=== PATIENT | female | born 2000 | race Caucasian/White ===

== ENCOUNTER 2022-10-12 07:49 | Outpatient (CLI) | payer BC, SELFPAY ==
--- NOTE | 2022-11-01 01:36 | WPDHOMESLEEP ---
Sleep Study - Home Unattended Date of Study: 10/12/22 Ordering Provider: Jason David MD Interpreting Provider: Sera Estevez, DO Home Sleep Study Type: Watch PAT Height: 1.63 m Weight: 97.069 kg Body Mass Index: 36.7 Neck Circumference (inches): 14 [place]: 7 Reason for Sleep Study Daytime hypersomnia Sleep History The patient is a 22-year-old female with daytime hypersomnia that had a sleep study ordered by her primary care for evaluation of sleep apnea. The patient denies awakening from sleep short of breath. She denies awakening at night with heartburn, belching or cough. She denies snoring. She occasionally has trouble sleeping when she has a cold. She denies waking up gasping for air throughout the night. She denies having breathing problems at night observed by herself or others. She occasionally sweats excessively at night. She denies having heart palpitations or irregular heartbeats during the night. She frequently falls asleep during the day but never while driving. She denies sleep paralysis and cataplexy. She frequently has trouble at school or work due to sleepiness. She rarely experiences vivid dreamlike scenes upon awakening or falling asleep. He rarely feels afraid of going to sleep. She denies having nightmares. She occasionally remembers her dreams. She frequently has thoughts racing through her mind. She occasionally feels sad, depressed and anxious. She denies having muscular tension. She denies noticing parts of her body jerk. She denies kicking during the night. She occasionally has crawling and aching feelings in her legs but rarely has leg pain during the night. She denies grinding her teeth during sleep but rarely awakens with morning jaw pain. She is rarely bothered by pain during the day and never awakened by pain during the night. She rarely wakes up feeling stiff in the morning. She rarely wakes up with sore achy muscles. She rarely wakes up with pain in the neck, spine or other joints. The patient goes to bed between midnight to 1:00 a.m. on both weekdays and weekends. It takes her 30 minutes to an hour to fall asleep. She wakes up twice throughout the night to use the restroom. She is able to fall back asleep within 10 minutes. She wakes up between 8:29 a.m. on weekdays and between 6-9 a.m. on the weekends. She typically gets 6 hours of sleep per night. She will stay in bed for 30 minutes to an hour after waking up in the morning. She currently lives with 2 friends. She does not consume any caffeinated beverages within 2 hours of bedtime. She does not engage in physical exercise before bedtime. She will read and watch television before falling asleep. She denies taking naps in the afternoon or the evening. She drinks 4-5 caffeinated beverages per day. She denies tobacco, alcohol and recreational drug use. [facility] Past Medical History Medical History ADHD (attention deficit hyperactivity disorder), inattentive type (~2017) diagnosed 09/06/2022 Anxiety BMI 36.0-36.9,adult BMI 37.0-37.9, adult Eczema upper extremities Elevated testosterone level in female (08/05/21) testosterone slightly elevated at 50 on 08/05/2021 Encounter for wellness examination in adult Folic acid deficiency (09/23/22) folic acid slightly low at 5.2 on 09/23/2022 with hemoglobin 13.3. Iron 45 with 15% saturation and ferritin 50. Hypersomnia (~2021) Irregular menses estrogen slightly low at 36 with testosterone elevated at 50 with FSH 5.9 and LH 7.4 on 08/05/2021 Left anterior shoulder pain (~02/2022) Obesity (BMI 30-39.9) Thrombocytosis (08/05/21) platelets slightly elevated at 432 on 08/05/2021. platelets 399 on 09/23/2022. Surgical History Surgical History H/O wisdom tooth extraction Family History Family History
[2022-11-01 01:49] VITALS: BMI 36.7
--- NOTE | 2023-01-04 13:42 | SLEEP ---
pt has sched appoint
== END 2022-10-13 10:48 | disposition home or self-care (01) ==
LOC: ANHCSM 07:50
PROVIDERS: PCP Family Medicine; Visit Provider Family Medicine
DX: G47.10 Hypersomnia, unspecified (principal)
CPT/HCPCS: 95800

== ENCOUNTER 2023-05-10 08:29 | Outpatient (CLI) | payer BC, SELFPAY ==
--- NOTE | 2023-05-31 17:42 | WPDSLEEPSTUD ---
Sleep Study Date of Study: 05/10/23 Ordering Provider: Jane Rojas MD Interpreting Physician: Sera Estevez DO Sleep Study Type: Polysomnogram Height: 1.63 m Weight: 90.718 kg Body Mass Index: 34.3 Neck Circumference (inches): 14 [place]: 7 Reason for Sleep Study Hypersomnia. She had a WatchPAT home study on 10/12/2022 that showed an overall AHI of 1.2 with desaturation down to 89%. Sleep History The patient is a 22-year-old female with ADHD, irregular menses and obesity that had a PSG and MSLT ordered by her block making machine operator for evaluation of hypersomnia. The patient denies awakening from sleep short of breath.? She denies awakening at night with heartburn, belching or cough.? She denies snoring.? She occasionally has trouble sleeping when she has a cold.? She denies waking up gasping for air throughout the night.? She denies having breathing problems at night observed by herself or others.? She occasionally sweats excessively at night.? She denies having heart palpitations or irregular heartbeats during the night.? She frequently falls asleep during the day but never while driving.? She denies sleep paralysis and cataplexy.? She frequently has trouble at school or work due to sleepiness.? She rarely experiences vivid dreamlike scenes upon awakening or falling asleep.? He rarely feels afraid of going to sleep.? She denies having nightmares.? She occasionally remembers her dreams.? She frequently has thoughts racing through her mind.? She occasionally feels sad, depressed and anxious.? She denies having muscular tension.? She denies noticing parts of her body jerk.? She denies kicking during the night.? She occasionally has crawling and aching feelings in her legs but rarely has leg pain during the night.? She denies grinding her teeth during sleep but rarely awakens with morning jaw pain.? She is rarely bothered by pain during the day and never awakened by pain during the night.? She rarely wakes up feeling stiff in the morning.? She rarely wakes up with sore achy muscles.? She rarely wakes up with pain in the neck, spine or other joints.? The patient goes to bed between midnight to 1:00 a.m. on both weekdays and weekends.? It takes her 30 minutes to an hour to fall asleep.? She wakes up twice throughout the night to use the restroom.? She is able to fall back asleep within 10 minutes.? She wakes up between 8:29 a.m. on weekdays and between 6-9 a.m. on the weekends.? She typically gets 6 hours of sleep per night.? She will stay in bed for 30 minutes to an hour after waking up in the morning.? She currently lives with 2 friends.? She does not consume any caffeinated beverages within 2 hours of bedtime.? She does not engage in physical exercise before bedtime.? She will read and watch television before falling asleep.? She denies taking naps in the afternoon or the evening.? She drinks 4-5 caffeinated beverages per day.? She denies tobacco, alcohol and recreational drug use. [facility] Past Medical History Medical History ADHD (attention deficit hyperactivity disorder), inattentive type (~2017) diagnosed 09/06/2022 Anxiety BMI 34.0-34.9,adult BMI 36.0-36.9,adult BMI 37.0-37.9, adult Eczema upper extremities Elevated testosterone level in female (08/05/21) testosterone slightly elevated at 50 on 08/05/2021 Encounter for wellness examination in adult Folic acid deficiency (09/23/22) folic acid slightly low at 5.2 on 09/23/2022 with hemoglobin 13.3. Iron 45 with 15% saturation and ferritin 50. Hypersomnia (~2021) Home sleep study on 10/12/2022 with AHI of 1.8 with RDI 9.1 with oxygen saturation down 89%. Patient needs split night sleep study and MSLT. Referral to sleep specialist. Irregular menses estrogen slightly low at 36 with testosterone elevated at 50 with FSH 5.9 and LH 7.4 on 08/05/2021 Left anterior shoulder pain (~02/2022) Obesity (BMI 30-39.9) Thrombocytosis (08/05/21) lesvia
[2023-05-31 18:05] VITALS: BMI 34.3
--- NOTE | 2023-05-31 19:06 | WPDSLEEPSTUD ---
Sleep Study Date of Study: 05/10/23 Ordering Provider: Jane Rojas MD Interpreting Physician: Sera Estevez DO Sleep Study Type: Multiple Sleep Latency Test Height: 1.63 m Weight: 90.718 kg Body Mass Index: 34.3 Neck Circumference (inches): 14 [place]: 7 Reason for Sleep Study Excessive daytime sleepiness Sleep History Please see sleep history on PSG report from the previous night. [facility] Past Medical History Medical History ADHD (attention deficit hyperactivity disorder), inattentive type (~2017) diagnosed 09/06/2022 Anxiety BMI 34.0-34.9,adult BMI 36.0-36.9,adult BMI 37.0-37.9, adult Eczema upper extremities Elevated testosterone level in female (08/05/21) testosterone slightly elevated at 50 on 08/05/2021 Encounter for wellness examination in adult Folic acid deficiency (09/23/22) folic acid slightly low at 5.2 on 09/23/2022 with hemoglobin 13.3. Iron 45 with 15% saturation and ferritin 50. Hypersomnia (~2021) Home sleep study on 10/12/2022 with AHI of 1.8 with RDI 9.1 with oxygen saturation down 89%. Patient needs split night sleep study and MSLT. Referral to sleep specialist. Irregular menses estrogen slightly low at 36 with testosterone elevated at 50 with FSH 5.9 and LH 7.4 on 08/05/2021 Left anterior shoulder pain (~02/2022) Obesity (BMI 30-39.9) Thrombocytosis (08/05/21) platelets slightly elevated at 432 on 08/05/2021. platelets 399 on 09/23/2022. Surgical History Surgical History H/O wisdom tooth extraction Family History Family History Grandparent Diabetes mellitus Acute myocardial infarction Family history of malignant neoplasm of cervix, Onset Age: 60 Father Family history of hypercholesterolemia Hypertension Depression Mother Family history of hypercholesterolemia Hypertension Family history of gynecological problem Rheumatoid arthritis Narcolepsy Restless leg syndrome Grandparent Asthma COPD (chronic obstructive pulmonary disease) Social History Social History Smoking status: Never smoker Alcohol intake: never Substance use: never Substance use type: does not use Lack of Transportation: No Lack of Food: Never True Current Housing: I Have Housing Concerned About Future Housing: No Difficulty Paying Gas/Electric Bills: No Difficulty Paying for Meds: No Currently Unemployed: No Education: High School Diploma/GED Difficulty w/ Childcare or Family Care: No Medications Home Medications Medication Instructions Recorded Confirmed Type triamcinolone acetonide 0.5 % 1 applic topical BID #45 grams 08/16/21 03/09/23 Rx topical cream vitamin B complex 1 tablet PO DAILY 10/02/22 03/09/23 History dextroamphetamine-amphetamine 10 10 mg PO BID #60 tabs 05/04/23 Rx mg tablet (Adderall) Sleep Procedure The recording montage for the MSLT includes central EEG (C3-A2, C4-A1) and occipital (O1-A2, O2-A1) derivations, left and right eye electrooculograms (EOGs), mental/submental electromyogram (EMG), and electrocardiogram (EKG). Nap 1 commenced at 07:25. Nap 1 was terminated at 07:59. Sleep latency was 18 minutes. Sleep-onset REM did not occur. The patient said that sleep occurred. Nap 2 commenced at 09:24. Nap 2 was terminated at 09:45. Sleep latency was 20.4 minutes. Sleep-onset REM did not occur. The patient said that sleep did not occur. Nap 3 commenced at 11:19. Nap 3 was terminated at 11:38. Sleep latency was 20.5 minutes. Sleep-onset REM did not occur. The patient said that sleep did not occur. Nap 4 commenced at 13:19. Nap 4 was terminated at 13:39. Sleep latency was 20.5 minutes. Sleep-onset REM did not occur. The patient said that sleep did not occur. Nap 5 did not occur. The mean s
[2023-05-31 19:09] VITALS: BMI 34.3
== END 2023-05-11 14:46 | disposition home or self-care (01) ==
LOC: ANHCSM 08:34
PROVIDERS: PCP Family Medicine; Visit Provider Internal Medicine Critical Care Medicine
DX: G47.10 Hypersomnia, unspecified (principal); F90.9 Attention-deficit hyperactivity disorder, unspecified type; E66.9 Obesity, unspecified; Z68.34 Body mass index [BMI] 34.0-34.9, adult
CPT/HCPCS: 95805; 95810

== ENCOUNTER 2024-05-09 07:50 | Outpatient (CLI) | payer BC, SELFPAY ==
--- NOTE | ~2024-05-09 | US_ITS ---
Thyroid ultrasound. Clinical History: Nontoxic goiter Findings: Real-time sonography of the thyroid gland was performed. The right lobe measures 5.8 x 1.4 x 1.9 cm. The left lobe measures 5.0 x 1.4 x 1.8 cm. The isthmus is 2 mm in AP diameter. Hyperintense diffusely heterogeneous. No definite discrete nodule seen. Impression: Heterogeneous thyroid gland without definite, discrete nodule.. Reviewed, dictated and finalized at [facility]. Impression: Heterogeneous thyroid gland without definite, discrete nodule..
== END 2024-05-09 07:51 ==
LOC: MICIMG 07:51
PROVIDERS: PCP Family Medicine; Visit Provider Nurse Practitioner Family
DX: E04.9 Nontoxic goiter, unspecified (principal)
CPT/HCPCS: 76536